=== PATIENT | male | born 1945 | race Caucasian/White ===

== ENCOUNTER 2016-09-14 15:19 | Emergency (ER) | payer OTHER ==
[2016-09-14 15:19] VITALS: BP 127/72; PULSE 72; RESP 25; O2SAT 98
[~2016-09-14 15:19] MED LIST: ASP81TEC PO; ZESTRIL PO
--- NOTE | 2016-09-14 15:22 | ED.REPORT ---
HPI-Chest Pain 40 and Over Date of Service Sep 14, 2016 ED Provider: Tommie Kunz Patient is a 71 year old male with a hx of HTN who presents to the ED complaining of sudden, midline chest aching onset about 3.5 hours ago while having a cup of coffee at home. When asked about his chest pain he points to the epigastric region. Associated symptoms include back stiffness. He denies pleuritic pain, abdominal pain, arm pain, neck pain, nausea, vomiting, or any other symptoms. His pain has gradually improved since onset and improves with belching. He has had similar symptoms 7-8 year ago from acid reflux. He used to take Prilosec chronically. He takes Naproxen occasionally for chronic back pain. Nursing Notes Stated Complaint: CHEST PAIN Chief Complaint: Chest Pain Nursing Notes Reviewed: Yes Allergies: Coded Allergies: No Known Allergies (Verified , 09/14/16) Scheduled Aspirin-Expunged Drug, Do Not Renew! (Aspirin EC-Expunged Drug, Do Not Renew!) 81 Mg Tablet MG PO DAILY Lisinopril-Expunged Drug, Do Not Renew! (Lisinopril-Expunged Drug, Do Not Renew! ) 20 Mg Tablet 20 MG PO DAILY Omeprazole (Omeprazole) 20 Mg Tablet.dr 20 MG PO DAILY General Time Seen by MD: 15:21 Chief Complaint Chest aching Hx Obtained From: Patient Arrived By: Walk-in Sudden in Onset?: Yes Onset Occurred: 1 - 4 hours ago Symptom Duration: Since onset Quality: Aching Radiation: : Does not radiate Similar Sx Previous: Yes Risk Factors )( CAD Risk Stratification HypertensionNo Diabetes mellitus, No Hyperlipidemia, No Known CAD, No Smoking Risk factors reviewed )( TAD Risk Stratification HypertensionNo Pre-exist aortic aneurysm, No Risk factors reviewed )( PE Risk Stratification No Coagulation Disorder, No , No Previous DVT, No Surgery Last 60 Days Risk factors reviewed Past Medical History Past Medical History Reports: GERD, Gastritis, Hypertension, Denies: Congestive heart failure, Coronary artery disease Reports: Thyroid disease Past Surgical History Denies Smoking History Former Smoker Social History 1 beer a day Ambulatory Status Independent Review of Systems Respiratory: Denies: Pleuritic pain Cardiovascular: Reports: Chest pain GI: Denies: Abdominal pain, Nausea, Vomiting Musculoskeletal: Denies: Extremity pain, Neck pain Complete sys rev & neg: except as marked. Physical Exam Initial Vital Signs Vital Signs (First) Date Time Temp Pulse Resp B/P Pulse Ox O2 Delivery O2 Flow Rate FiO2 09/14/16 15:19 36.8 72 25 127/72 98 Room Air Initial VS: Reviewed Head / Eyes: Atraumatic, Normocephalic Skin: Warm, Dry Neurologic: Alert, Oriented, Nonfocal Psychiatric: Mood/affect normal, Behavior normal, Normal thought content General/Constitutional: Awake, Alert, No acute distress, Well developed Respiratory / Chest: Atraumatic, Breath sounds NL, Breath sounds = bilat, No respiratory distress Cardiovascular: Heart rate NL, No gallop, No murmurs, No rubs, Peripheral circulation NL Abdomen: Soft, Non-tender, No distention Tolerates deep palpation to all 4 quadrants. Lower Extremity / Pelvis / MS: Inspection NL No calf swelling or tenderness. Interpretation & Diagnostics Lab Results Interpretation Result Diagram: 09/14/16 1538 09/14/16 1538 Test 09/14/16 15:38 09/14/16 17:22 White Blood Count 11.4th/mm3 (3.8-10.1) Red Blood Count 3.88mil/mm3 (4.40-5.80) Hemoglobin 13.5g/dL (13.8-17.2) Hematocrit 39.0% (41.0-50.0) Mean Corpuscular Volume 100.5fL (81-100) Mean Corpuscular Hemoglobin 34.8pg (27.0-35.0) Mean Corpuscular Hemoglobin Concent 34.6% (32.0-37.0) Red Cell Distribution Width 11.4% (12.3-15.4) Platelet Count 211bil/L (150-400) Neutrophils (%) (Auto) 68.9% (40-74) Lymphocytes (%) (Auto) 17.2% (14-46) Monocytes (%) (Auto) 9.9% (4-12) Eosinophils (%) (Auto) 3.1% (0-5) Basophils (%) (Auto) 0.4% (0-3) Sodium Level 132mEq/L (134-144) Potassium Level 3.4mEq/L (3.5-5.2) Chloride Level 93mEq/L (97-108) Carbon Dioxide Level 22mmol/L (18-29) Blood Urea Nitrogen 14mg/dL (8-27) Creatinine 0.70mg/dL (0.76-1.27) Estimat Glomerular Filtration Rate 118mL/min (>59) Glucose Level 111mg/dL (60-99) Calcium Level 8.7mg/dL (8.5-10.1) Magnesium Level 1.8mg/dL (1.6-2.6) Total Bilirubin 1.9mg/dL (0.0-1.2) Aspartate Amino Transf (AST/SGOT) 360U/L (0-50) Alanine Aminotransferase (ALT/SGPT) 107U/L (0-44) Alkaline Phosphatase 95U/L (25-160) Total Protein 6.5g/dL (6.4-8.4) Albumin 3.5g/dL (3.4-5.0) Hold Stephenson Top Tube Received (Received) Troponin T 0.010ug/L (0.0-0.011) ECG Interpretation ECG Interpretation: sinus rat 66 left axis deviation no ST segment elevation inferior Q waves present T waves inverted in 2 and AVF No other ischemic changes, no prior Time: 15:15 Interpreted by: ED physician X-Ray Chest Interpretation Chest Xray Interpretation: IMPRESSION: 1. No acute cardiopulmonary disease. Dictated by: Renan Haddad M.D. on 09/14/2016 at 16:19 Approved by: Renan Haddad M.D. on 09/14/2016 at 16:37 View: Portable, 1 view Interpretation / Wet Read by: Interpret - Radiologist Re-Eval/Medical Decision Med Decision/Clinical Course The patient is a 71-year-old male who presents to the emergency department with epigastric pain for the last 3-4 hours. Upon arrival he is afebrile, hemodynamically stable and in no apparent distress. He reports that his pain has been gradually subsiding and is relieved by belching. He reports that this pain is identical to previous symptoms which were relieved with proton pump inhibitor and attributed to GERD/gastritis. He admits to using NSAIDs recently for chronic back pain symptoms. He reports extensive cardiac workup in the setting of previous identical symptoms which was negative. Here in the emergency department we did not administer aspirin as it had already been given prior to arrival. EKG was obtained and interpreted by myself as documented above. There is no evidence of ST elevation MD. Initial screening troponin was unremarkable. CBC demonstrated macrocytosis and mild leukocytosis. CMP was notable for mild hypokalemia with potassium of 3.4 and significantly elevated transaminases and total bilirubin. CXR: Obtained, reviewed and interpreted by myself shows no evidence of infiltrates, effusions or pneumothorax. Cardiac and mediastinal silhouette normal. No bony or soft tissue abnormalities. Here in the emergency room the patient was treated with a GI cocktail and Zofran. He reported complete resolution of his symptoms. While the patient does have some risk factors for acute MD is overall presentation is not convincing thereof. Initial EKG and troponin are reassuring and patient does not desire to remain in the emergency department or be readmitted for further cardiac workup. The patient has no recent major risk factors for pulmonary embolism and examination reveals no evidence of DVT. I do not feel that his pain is likely related to occult pulmonary embolism. Serial abdominal examinations were completely benign and there is no evidence suggestive of perforated ulcer, peritonitis or acute surgical intra-abdominal process. After the finding of the patient's significantly elevated liver function testing he admitted that he drinks heavily consuming 8-12 alcoholic beverages a day. Serial abdominal examinations remained benign without any tenderness, or guarding about the right upper quadrant. I ordered a right upper quadrant ultrasound to further assess this as well as a repeat troponin however the patient stated that he did not want to wait in the emergency room any longer and would prefer to be discharged to follow-up with his regular doctor given that his symptoms had resided. He demonstrated decisional capacity. Patient has an appointment with primary care physician next week and will follow-up at that time. He will be treated with a proton pump inhibitor which I prescribed. I have recommended that he discontinue NSAID use and make appropriate dietary changes. I have instructed him to avoid excessive alcohol consumption. Prior to discharge follow-up and return precautions were reviewed in detail with the patient who verbalized understanding and agreement with the plan. The patient was discharged in stable condition. Time of Eval: 17:08 Re-Evaluation/Progress Note: Rechecked patient. He would like to go home and denies further testing. Discussed plan for discharge. Patient understands and agrees with plan. All questions addressed at this time. Counseled Regarding: Diagnosis, Lab results, Need for follow-up, When/why to return to ED Discharge & Departure Primary Impression: Gastritis Gastritis type: unspecified gastritis Chronicity: acute Gastritis bleeding : without bleeding Qualified Code: K29.00 - Acute gastritis without bleeding Additional Impressions: GERD (gastroesophageal reflux disease) Esophagitis presence: without esophagitis Qualified Code: K21.9 - Gastro- esophageal reflux disease without esophagitis NSAID induced gastritis Encounter type: initial encounter Injury intent: accidental or unintentional Qualified Code: T39.391A - Poisoning by other nonsteroidal anti- inflammatory drugs [NSAID], accidental (unintentional), initial encounter Epigastric pain Belching Macrocytosis Elevated transaminase level Total bilirubin, elevated Alcohol abuse Disposition: Home Discharge Condition All VS Reviewed: Yes Condition: Improved Additional Instructions: Thank you for seeking care at the emergency room. It is difficult for us to make definitive diagnoses in the ED but we believe that you are experiencing gastritis/GERD. I think that your heavy alcohol use is also contributing to her symptoms. Our primary goal today in the ED was to evaluate you for any life-threatening conditions. Your evaluation was reassuring. You will be discharged with a prescription for an antacid medication, please take as directed. You should follow-up with your primary doctor in the next week. I would also recommend that you stop taking any NSAID type medications such as naproxen or ibuprofen. You should avoid alcohol. He did not want to stay for further testing or ultrasound of her liver today. Therefore, I recommend that you get this done as an outpatient through your regular doctor within the next couple of days. I would recommend he do make an appointment with a GI doctor as well in order to make sure the you do not have an ulcer especially if your symptoms recur. You should return to the ED immediately if you develop any worsening symptoms, fevers, vomiting, cough, shortness of breath, chest pain, lightheadedness, weakness or any other concerning signs or symptoms. Thank you for letting us partake in your care today. Referrals: Trey Haji PA-C (PCP) Alphonso Leggett MD Scribe Attestation Portions of this note were transcribed by Yajaira Marquez. I, Dr. Kunz personally performed the history, physical exam and medical decision-making; I reviewed and confirmed the accuracy of the information in the transcribed note. Signed by: Yajaira Marquez 09/14/16, [id number] copies to: Trey Haji PA-C, Beck O MD Sep 14, 2016 15:22 YAJAIRA MARQUEZ Sep 14, 2016 15:55
[2016-09-14 15:46] LABS: BASOPHILS % (AUTO) 0.4 % (0-3); EOSINOPHILS % (AUTO) 3.1 % (0-5); MONOCYTES % (AUTO) 9.9 % (4-12); Mean Corpuscular Hemoglobin 34.8 pg (27.0-35.0); Mean Corpuscular Volume 100.5 fL (81-100); NEUTROPHILS % (AUTO) 68.9 % (40-74); Platelet Count 211 bil/L (150-400)
[2016-09-14] MEDS ORDERED: OMEP20TA86 PO (15:59)
[2016-09-14] MEDS ORDERED: LidocaineVisc 2%:Antacid 1:1 10 mL Syringe PO ONE (16:00)
[2016-09-14 16:32] LABS: Magnesium 1.8 mg/dL (1.6-2.6); TROPONIN T < 0.010 ug/L (0.0-0.011)
--- NOTE | 2016-09-14 16:38 | DRSVH ---
PROCEDURE: X-RAY CHEST ONE VIEW, PORTABLE ([id number]) INDICATIONS: chest pain TECHNIQUE: One view of the chest was acquired. COMPARISON: [facility], , CHEST 1VW (PORTABLE), 10/11/2008, 2:24. FINDINGS: Surgical changes and devices: None. Lungs and pleura: No pleural effusions or pneumothorax. Lungs are clear. Mediastinum: Mediastinal contours appear normal. Heart size is normal. Bones and chest wall: No suspicious bony lesions. Overlying soft tissues appear unremarkable. IMPRESSION: 1. No acute cardiopulmonary disease. Dictated by: Renan Haddad M.D. on 09/14/2016 at 16:19 Approved by: Renan Haddad M.D. on 09/14/2016 at 16:37
[2016-09-14 17:33] VITALS: BP 129/72; PULSE 74; RESP 15; O2SAT 95
== END 2016-09-14 17:34 | disposition home or self-care (01) ==
LOC: SED 15:20
DX: K29.00 Acute gastritis without bleeding (principal); K21.9 Gastro-esophageal reflux disease without esophagitis; T39.391A Poisoning by other nonsteroidal anti-inflammatory drugs [NSAID], accidental (unintentional), initial encounter; R14.2 Eructation; D75.89 Other specified diseases of blood and blood-forming organs; R74.0 Nonspecific elevation of levels of transaminase and lactic acid dehydrogenase [LDH]; E80.7 Disorder of bilirubin metabolism, unspecified; F10.10 Alcohol abuse, uncomplicated; I10 Essential (primary) hypertension; E07.9 Disorder of thyroid, unspecified; Z87.891 Personal history of nicotine dependence; Z79.82 Long term (current) use of aspirin